=== PATIENT | male | born 1930 | race Caucasian/White ===

== ENCOUNTER 2017-11-22 07:52 | Outpatient (CLI) | payer MEDICARE ==
[2017-11-22 09:43] LABS: Hemoglobin 13.5 g/dL (14.0-18.0); Mean Corpuscular HGB CONC 33.8 g/dL (32.0-36.0); Mean Corpuscular Hemoglobin 33.6 pg (27.0-31.0); Mean Corpuscular Volume 99.5 fL (78.0-98.0); Mean Platelet Volume 7.1 fL (7.4-10.4); Platelet Count 171 thou/uL (130-400); RBC Distribution Width 11.9 % (11.5-14.5); Red Blood Cell (RBC) Count 4.01 mill/uL (4.70-6.10); White Blood Cell (WBC) Count 5.1 thou/uL (4.8-10.8)
== END 2017-11-22 07:53 | disposition home or self-care (01) ==
LOC: LABBT 07:52
PROVIDERS: ATTEND Urology
DX: Z01.812 Encounter for preprocedural laboratory examination (principal); N40.0 Benign prostatic hyperplasia without lower urinary tract symptoms
CPT/HCPCS: 85027

== ENCOUNTER 2017-11-29 05:48 | Day surgery (SDC) | payer MEDICARE ==
[2017-11-22 08:33] VITALS: BMI 23.0
[2017-11-29] MEDS ORDERED: Levofloxacin 500 mg/D5W 100 ml Premix Bag ONE (06:30)
[2017-11-29] MEDS ORDERED: Dexamethasone 4 mg/ml Vial ONE ×2 (06:31)
[2017-11-29] MEDS ORDERED: B & O ONE (06:32)
[2017-11-29] MEDS ORDERED: Fentanyl 100 MCG/2 ML VIAL ONE (07:24)
[2017-11-29] MEDS ORDERED: Propofol 1,000 MG/100 ML VIAL IV ONE (07:25)
[2017-11-29] MEDS ORDERED: Furosemide 20 MG/2 ML VIAL ONE (07:35)
[2017-11-29] MEDS ORDERED: Lidocaine 1% PF 5 ML VIAL ONE ×2 (12:23)
[2017-11-29] MEDS ORDERED: Glycopyrrolate 0.2 MG/ML 5 ML SYRINGE ONE ×2 (12:23)
[2017-11-29] MEDS ORDERED: ePHEDrine/0.9% NaCl/PF SYRINGE 50 mg/10 ml ONE (12:23)
[2017-11-29] MEDS ORDERED: Dexamethasone 20 MG/5 ML VIAL ONE (12:23)
[2017-11-29] MEDS ORDERED: Ondansetron HCl/PF 4 MG/2 ML Vial ONE (12:23)
[2017-11-29] MEDS ORDERED: PROPOFOL 200 MG/20 ML VIAL ONE (12:23)
--- NOTE | 2017-11-29 15:07 | OP ---
DATE OF PROCEDURE: 11/29/2017 PREOPERATIVE DIAGNOSIS: Benign prostatic hypertrophy. POSTOPERATIVE DIAGNOSIS: Benign prostatic hypertrophy. PROCEDURE PERFORMED: GreenLight laser vaporization of the prostate. SURGEON: Smiley Casas M.D. ANESTHESIA: General laryngeal mask airway. FINDINGS: Adequate opening up of the prostatic urethra with enucleation of the middle lobe. SPECIMENS: Prostate. A total of 131,980 joules used. ESTIMATED BLOOD LOSS: Minimal. DRAINS: Remaining was 20-Niuean 2-way. INDICATIONS: The patient is an 87-year-old male who was followed in the office for BPH and on maximum medical therapy who preferred both something definitive for improvement of his urination as well as to get off medications, so we elected for definitive procedure. TECHNIQUE: The patient was brought into the room by Anesthesia and laid on table in supine position. After receiving general anesthetic, his legs were placed in lithotomy position and his perineum was prepped and draped in sterile fashion. Using the 22.5-Niuean cystoscope and a 30-degree lens, the urethra was traversed and the bladder inspected. The ureteral orifices were identified and preserved throughout the case. At a power level of 80, the middle lobe was enucleated and the lateral edges of the proximal urethra were taken down with the power level of 80 and then a power level of 180 was used for the mid gland. While sitting at the veru, the prostatic urethra was wide open at this point. I did take down a portion of the bladder neck and trigone to the level of the bladder floor, so that the ureteral orifices were somewhat elevated on either side of this. The scope removed, and a decent stream was noted. Scope was put back in. Hemostasis was ensured using a power level of 80 to paint the prostatic bed. All chips were evacuated and sent for specimen. The bladder was further irrigated for any debris and then the scope was removed the final time and a 20 [place] Del Cid was placed to gravity. The patient tolerated the procedure well and was then awakened and transferred to PACU in stable condition. NAVIN
== END 2017-11-29 11:13 | disposition home or self-care (01) ==
LOC: SDC 05:48
PROVIDERS: ATTEND Urology
PROC: 0V507ZZ Destruction of Prostate, Via Natural or Artificial Opening (ICD-10-PCS; principal; 2017-11-29)
DX: N40.1 Benign prostatic hyperplasia with lower urinary tract symptoms (principal); R39.12 Poor urinary stream; R33.8 Other retention of urine; R39.11 Hesitancy of micturition; I10 Essential (primary) hypertension; G47.00 Insomnia, unspecified; Z87.440 Personal history of urinary (tract) infections; Z87.891 Personal history of nicotine dependence; Z79.82 Long term (current) use of aspirin; Z79.899 Other long term (current) drug therapy; Z98.890 Other specified postprocedural states
CPT/HCPCS: 88305; J1100; J1940; J1956; J2001; J2405; J2704; J3010